=== PATIENT | male | born 1960 | race Caucasian/White ===

== ENCOUNTER → 2019-07-27 10:56 | Outpatient (REF) | payer OTHER, SELFPAY | LOC: MTDU 10:56 | PROVIDERS: PCP Nurse Practitioner Family; Referring Provider Family Medicine; Visit Provider Family Medicine | DX: U07.1 COVID-19 (principal) | CPT/HCPCS: 87635; G2023; U0004 ==

== ENCOUNTER 2023-07-11 06:20 | Emergency (ER) | payer OTHER, SELFPAY ==
[2023-07-11] VITALS (7 sets, daily range): BP systolic 106–133; BP diastolic 66–85; PULSE 18–71; RESP 11–18; TEMP 35.7–36.6; O2SAT 97–100; BMI 34.2
--- NOTE | 2023-07-11 06:27 | EKG12_ITS ---
Test Reason : Blood Pressure : / mmHG Vent. Rate : 060 BPM Atrial Rate : 060 BPM P-R Int : 170 ms QRS Dur : 078 ms QT Int : 460 ms P-R-T Axes : 035 016 029 degrees QTc Int : 460 ms Normal sinus rhythm Normal ECG Confirmed by ROMAN LOPEZ, MYRIAM ([id number]), acquisitions editor DEVI LOYD ([id number]) on 07/14/2023 11:35:08 AM Referred By: Confirmed By:MYRIAM OWENS MD
[2023-07-11 06:39] LABS: Absolute Neutrophil Count 3.6 X10^3/uL (2.0-7.7); Basophil# 0.04 X10^3/uL; Basophil% 0.6 % (0-1); Eosinophil# 0.08 X10^3/uL; Eosinophils% 1.2 % (0-5); Hematocrit 40.3 % (40-54); Hemoglobin 13.6 g/dL (13.0-16.5); Lymphocyte % 36.1 % (19-41); Mean Corp Hgb Conc 33.7 g/dL (32-36); Mean Corpuscular Hgb 29.8 pg (27.0-32.0); Mean Corpuscular Volume 88.2 fL (80-94); Mean Platelet Vol. 9.7 fl (6.2-12.0); Monocyte% 7.5 % (0-10); NRBC Flagged by Analyzer 0 % (0-5); Neutrophil # 3.61 X10^3/uL (2.7-7.7); Neutrophil % 54.4 % (47-70); Platelet Count 234 K/mm3 (150-450); RBC Distribution Width CV 13.1 % (11.6-14.6); RBC Distribution Width SD 42.5 fl (35.1-43.9); Red Blood Count 4.57 M/mm3 (4.6-6.2); White Blood Count 6.6 K/mm3 (4.4-11.0)
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
[2023-07-11 07:02] LABS: Anion Gap 6 (5-15); BUN 19 mg/dL (7-18); BUN/Creat Ratio 15.4 RATIO (10-20); Calcium,Total 8.9 mg/dL (8.5-10.1); Chloride 109 mmol/L (98-107); Creatinine, Serum 1.23 mg/dL (0.70-1.30); EST Glomerular Filtration Rate 64 mL/min (>60); Est Glom Filt Rate - Afr Amer 77 mL/min (>60); Estimated Creatinine Clearance 69.38 ml/min; Glucose 151 mg/dL (74-106); Potassium 3.1 mmol/L (3.5-5.1); Sodium Level 141 mmol/L (136-145); Troponin-I HS 11 pg/mL (3.0-78.0)
[2023-07-11] MEDS: 0.9% Normal Saline (1000mL) 1,000 ML 999 ML IV ×2 (07:05→07:06)
[2023-07-11] MEDS: Potassium Chloride Oral Tablet 20 MEQ 40 MEQ PO (08:32)
[2023-07-11 08:54] LABS: Troponin-I HS 9 pg/mL (3.0-78.0)
[2023-07-16 05:07] LABS: QNTFERON TB Mitogen Value > 10.00 IU/mL (.); QNTFERON TB Nil Value 0.02 IU/mL (.); QNTFERON TB1+ Ag Value 0.02 IU/mL (.); QNTFERON TB2+ Ag Value 0.02 IU/mL (.); QNTIFERON TB Positive Criteria Negative (Negative)
== END 2023-07-11 10:31 | disposition home or self-care (01) ==
PROVIDERS: Emergency Provider Emergency Medicine; PCP Nurse Practitioner Family; Visit Provider Emergency Medicine
DX: E86.0 Dehydration (principal); I42.1 Obstructive hypertrophic cardiomyopathy; R55 Syncope and collapse
CPT/HCPCS: 80048; 83735; 84484; 85025; 86480; 93005; 96360; 99285; J7030; A4216